=== PATIENT | male | born 1960 | race Two or more races ===

== ENCOUNTER 2024-12-09 19:51 | Emergency (ER) | payer BC, SELFPAY ==
[2024-12-09 19:54] VITALS: BP 170/100; PULSE 99; TEMP 36.9; O2SAT 96; BMI 32.5
--- NOTE | 2024-12-09 20:09 | ED.EXTPRO1 ---
HPI - Extremity Problem General Chief complaint: Extremity Problem, Nontraumatic Stated complaint: LEFT KNEE SWOLLEN Time Seen by Provider: 12/09/24 20:00 Source: patient Mode of arrival: Wheelchair Limitations: no limitations History of Present Illness HPI Narrative: patient presents complaining of left knee pain for past week. States he works on his knees. sometimes he wears pads. Has been applying ice to his knee and it was helping initially but not now. States today chills and body aches. Thought he had a fever but is afebrile here. not able to recall injury to the knee Related Data Home Medications ?Medication ?Instructions ?Recorded ?Confirmed latanoprost 0.005 % eye drops drp ophthalmic (eye) 12/09/24 timolol maleate 0.5 % eye drops drp ophthalmic (eye) 12/09/24 Allergies Allergy/AdvReac Type Severity Reaction Status Date / Time No Known Drug Allergies Allergy Verified 12/09/24 20:03 Review of Systems ROS Status of ROS 10 or more systems reviewed and unremarkable except as noted in history and below PFSH PFSH Social History Little interest or pleasure in doing things: not at all Feeling down, depressed, or hopeless: not at all Exam Constitutional Vital Signs, click to edit/add: Last Vital Signs Temp 98.4 F 12/09/24 19:54 Pulse 72 12/09/24 22:08 Resp 16 12/09/24 22:08 BP 140/83 12/09/24 22:08 Pulse Ox 98 12/09/24 22:08 O2 Del Method Room Air 12/09/24 19:54 Common normals: no apparent distress, average body habitus, oriented x3, no limitations, healthy appearing, alert and well nourished [facility] Common normals: normocephalic and head/scalp atraumatic Eye Common normals: PERRL, EOMs intact bilaterally and conjunctivae normal Respiratory Common normals: normal respiratory effort, no retractions, no use of accessory muscles and clear to auscultation bilaterally Cardio Common normals: regular rate, regular rhythm, S1 normal heart sound and S2 normal heart sound GI Common normals: Normal to inspection, nondistended, normoactive bowel sounds present, soft to palpation and non-tender Extremity Other: mod effusion left knee. Knee is warm and focal lat. tenderness of the knee joint Neuro Common normals: oriented x3, CN's II-XII intact bilaterally, moves all extremities and no focal motor deficits Psych Appearance: grossly normal Course Vital Signs Vital signs: Vital Signs Temperature 98.4 F 12/09/24 19:54 Pulse Rate 99 H 12/09/24 19:54 Respiratory Rate 18 12/09/24 19:54 Blood Pressure 170/100 H 12/09/24 19:54 Pulse Oximetry 96 12/09/24 19:54 Oxygen Delivery Method Room Air 12/09/24 19:54 Temperature 98.4 F 12/09/24 19:54 Pulse Rate 72 12/09/24 22:08 Respiratory Rate 16 12/09/24 22:08 Blood Pressure 140/83 12/09/24 22:08 Pulse Oximetry 98 12/09/24 22:08 Oxygen Delivery Method Room Air 12/09/24 19:54 MDM - Extremity (Nontraumatic) MDM Narrative Medical decision making narrative: patient presents with worsening pain left knee for the past week. No injury he can recall . He works on his knees. Has mod. effusion and knee is warm. WBC is normal. Knee aspirate with [id number] RBC and 7655 WBC. Cx pending. Discussed with donor recruiter orthopedic surgeon Dr Sepulveda who feels this is likely a bursitis. Recommends antibiotics and out patient follow up in the office. Patient and informed of the above. Given dose of Unasyn in the ED and Discharged home with a prescription for Augmentin. Lab Data Labs: Lab Results 12/09/24 Range/Units 20:25 WBC 9.8 (4.0-11.0) 10^3/uL RBC 5.15 (4.70-6.10) 10^6/uL Hgb 15.0 (14.0-18.0) g/dL Hct 44.0 (42.0-54.0) % MCV 85.4 (80.0-94.0) fL MCH 29.1 (25.9-34.0) pg MCHC 34.1 (29.9-35.2) g/dL RDW 13.2 (11.0-15.0) % Plt Count 190 (150-450) 10^3/uL MPV 10.8 (9.5-13.5) fL Neut % (Auto) 74.6 (43.0-75.0) % Lymph % (Auto) 16.2 L (20.5-60.0) % Sharp % (Auto) 7.5 (1.7-12.0) % Eos % (Auto) 1.1 (0.9-7.0) % Baso % (Auto) 0.3 (0.2-2.0) % Neut # (Auto) 7.3 H (1.4-6.5) 10^3/uL Lymph # (Auto) 1.6 (1.2-3.8) 10^3/uL Sharp # (Auto) 0.7 (0.3-0.8) 10^3/uL Eos # (Auto) 0.1 (0.0-0.7) 10^3/uL Baso # (Auto) 0.0 (0.0-0.1) 10^3/uL Abs Immat Gran (auto) 0.03 (0.00-0.03) 10^3/uL Imm/Tot Granulo (auto) 0.3 (0.0-0.5) % ESR 15 (<=20) mm/hr Sodium 140 (136-145) mmol/L Potassium 3.6 (3.5-5.1) mmol/L Chloride 103 (98-107) mmol/L Carbon Dioxide 25.6 (21.0-32.0) mmol/L Anion Gap 15.0 BUN 16.0 (7.0-18.0) mg/dL Creatinine 1.26 (0.70-1.30) mg/dL Est GFR ( Amer) >60 (>=60 mL/min/1.73m^2) Est GFR (Non-Af Amer) 58 L (>=60 mL/min/1.73m^2) BUN/Creatinine Ratio 12.7 Glucose 141 H (74-106) mg/dL Lactate 1.6 (0.4-2.0) mmol/L Uric Acid 4.8 (3.5-7.2) mg/dL Calcium 8.7 (8.5-10.1) mg/dL C-Reactive Protein 1.09 H (<=0.50) mg/dL Discharge Plan Discharge Chief Complaint: Extremity Problem, Nontraumatic Clinical Impression: Bursitis of left knee Patient Disposition: Home, Self-Care Prescriptions / Home Meds: No Action latanoprost 0.005 % drops OPHTHALMIC (EYE) timolol maleate 0.5 % drops OPHTHALMIC (EYE) Print Language: Finnish Instructions: Knee Bursitis (ED) Additional Instructions: follow up with Dr Sepulveda later today Referrals: [facility] [Outside] - 1 week HA VAZQUEZ DO [Primary Care Provider, [facility]] - 1 week Discharge Date/Time: 12/10/24 05:01 Procedures ED Procedure Instructions Procedures Procedures: left knee aspiration. medial approach until sterile conditions. 1% lidocaine as local. Approx 15cc blood tinged fluid removed. Tolerated well. No complications
--- OUTSIDE RECORDS SUMMARY | 2024-12-09 20:28 | XMS_ITS | Clinical Summary ---
Author Organization [employer] Address [id number] [address] [place] [address] Care Team Providers Care Cycle Analyst Name Role Phone Walter Khan Asher Ophelia Primary Care Provider Allergies No known active allergies Medications timolol (BETIMOL) 0.25 % ophthalmic solution 1-2 drops 2 (two) times a day. Active aspirin 81 mg chewable tablet Chew 81 mg and swallow daily. Active Active Problems Problem Noted Date Diagnosed Date Left arm pain 11/21/2016 Family History Medical History Relation Name Comments Liver disease Father Diabetes Mother Hypertension Mother Stroke Mother Relation Name Status Comments Father Mother Alive Social History Tobacco Use Types Packs/Day Years Used Date Smoking Tobacco: Never Smokeless Tobacco: Never Alcohol Use Standard Drinks/Week Comments No 0 (1 standard drink = 0.6 oz pur e alcohol) Childcare Answer Date Recorded Childcare Unknown 10/25/2018 Employment Answer Date Recorded Employment Unknown 10/25/2018 Purpose - Life Answer Date Recorded Purpose and direction in life Unknown Sex and Gender Information Value Date Recorded Sex Assigned at Not on file Legal Sex Male 12:08 PM EDT Gender Identity Not on file Sexual Orientation Not on file Last Filed Vital Signs Vital Sign Reading Time Taken Comments Blood Pressure 97/58 11/22/2016 11:48 AM EDT Pulse 64 11/22/2016 11:48 AM EDT Temperature 36.4 C (97.5 F) 11/22/2016 11:48 AM EDT Respiratory Rate 16 11/22/2016 11:48 AM EDT Oxygen Saturation 100% 11/22/2016 11:48 AM EDT Inhaled Oxygen Concentration - - Weight 77.1 kg (170 lb) 11/21/2016 11:54 AM EDT Height 182.9 cm (6') 11/21/2016 11:54 AM EDT Body Mass Index 23.06 11/21/2016 11:54 AM EDT Plan of Treatment Not on file Goals Goal Patient Goal Type Associated Problems Recent Progress Patient-Stated? Author home self care General Yes Shannan Michele, RN Note: Evaluation of progress towards goal: pt. States he will dc home no needs. Medical Devices Not on file Insurance ANTH Advance Directives * Full Code (Latest Code Status on File) Date Activated Date Inactivated Comments 11/21/2016 1:33 PM 11/22/2016 7:54 PM Care Teams Cycle Analyst Relationship Specialty Start Date End Date Asher Watson Jr., [address] [place] [id number] PCP - General Internal Medicine 11/21/16
--- OUTSIDE RECORDS SUMMARY | 2024-12-09 20:28 | XMS_ITS | Patient Health Record ---
Author Organization [facility] Address [address] [place] [address] Care Team Providers Care [place]fgrass Technician Name Role Phone Asher Watson Primary Care Provider Kinza Mancini [phone] Results Component Value Reference Range Notes BLOOD GLUCOSE (IH) Reviewed date:01/26/2024 09:50:11 AM Interpretation:Normal Performing Lab: Notes/Report: Normal Blood Glucose 83 70 - 100 mg/dl Lipid Panel (IH) Reviewed date:01/26/2024 09:49:41 AM Interpretation:Normal Performing Lab: Notes/Report: Normal TChol 119 0 - 199 mg/dl HDL 34 0 - 59 mg/dl TC/HDL 2.0 0 - 5.1 LDL 68 0 - 99 mg/dl TRG 83 0 - 149 mg/dl Reason For Referral No Information Immunizations Vaccine Route Administration Date Status Comme [facility] [id number] Flublok, 18yo & older, PFS (0.5mL Admin) IM Intramuscular 01/26/2024 Administered Vital Signs Respiratory Rate 14 /min 01/26/2024 Blood pressure diastolic 82 mm Hg 01/26/2024 Height 69 in 01/26/2024 Blood pressure systolic 106 mm Hg 01/26/2024 Weight 238 lbs 01/26/2024 BMI 35.14 kg/m2 01/26/2024 Encounters Encounter Location Date Provider Diagnosis [id number] [place] [address] 01/26/2024 Kinza Nugent Screening for hypertension Z13.6 ; Influenza vaccine administered Z23 ; Screening for lipid disorders Z13.220 ; Screening for diabetes mellitus Z13.1 and Encounter for immunization Z23 Assessments Encounter Date Diagnosis (ICD Code) Assessment Notes Treatment Notes Treatment Clinical Notes Section Notes 01/26/2024 Influenza vaccine administered (ICD-10 - Z23) 01/26/2024 Screening for hypertension (ICD-10 - Z13.6) 01/26/2024 Screening for lipid disorders (ICD-10 - Z13.220) 01/26/2024 Screening for diabetes mellitus (ICD-10 - Z13.1) 01/26/2024 Encounter for immunization (ICD-10 - Z23) VIS given and discussed, no concerns voiced; Flu vaccine administered. Pt instructed to stay in the clinic area for 20 minutes after the injection. Return PRN, ER if adverse reaction occurs. 01/26/2024 Other Reviewed results of screening with patient as well as recommendation s for lifestyle changes as appropriate. Patient expressed understanding. Reminder to document amount of time spent with patient on Biometric Screening and counseling of their results in the Preventative Medicine section. Plan Of Treatment No Information Insurance Providers Payer Name Payer Address Payer Phone Subscriber Number Group Number Insured Name Patient Relationship to Insured Coverage Start Date Coverage End Date [employer] [facility] [address] [place] [address] [phone] [id number] Julius Haddad Self - patient is the insured
[2024-12-09 20:36] LABS: Hematocrit 44.0 % (42.0-54.0); Hemoglobin 15.0 g/dL (14.0-18.0); Immature Granulocytes Abs Auto 0.03 10^3/uL (0.00-0.03); Immature Granulocytes Pct Auto 0.3 % (0.0-0.5); Lymphocytes Absolute Auto 1.6 10^3/uL (1.2-3.8); Mean Corpuscular HGB Conc 34.1 g/dL (29.9-35.2); Mean Corpuscular Hemoglobin 29.1 pg (25.9-34.0); Mean Corpuscular Volume 85.4 fL (80.0-94.0); Platelet Count 190 10^3/uL (150-450); Red Blood Count 5.15 10^6/uL (4.70-6.10); White Blood Count 9.8 10^3/uL (4.0-11.0)
[2024-12-09 20:55] LABS: Lactate/Lactic Acid 1.6 mmol/L (0.4-2.0)
[2024-12-09 21:02] LABS: Anion Gap 15.0; Blood Urea Nitrogen 16.0 mg/dL (7.0-18.0); Calcium 8.7 mg/dL (8.5-10.1); Carbon Dioxide 25.6 mmol/L (21.0-32.0); Chloride 103 mmol/L (98-107); Estimated GFR (African America >60 (>=60 mL/min/1.73m^2); Estimated GFR (Non-African Ame 58 (>=60 mL/min/1.73m^2); Glucose 141 mg/dL (74-106); Potassium 3.6 mmol/L (3.5-5.1); Sodium 140 mmol/L (136-145)
[2024-12-09 21:07] LABS: Uric Acid 4.8 mg/dL (3.5-7.2)
[2024-12-09] MEDS: FENTANYL CITRATE/PF 100 MCG/2 ML VIAL 50 MCG IV (21:11)
[2024-12-09] MEDS: LIDOCAINE HCL 1% 100 MG/10 ML MDV INJ (21:16)
[2024-12-09 22:08] VITALS: BP 140/83; PULSE 72; O2SAT 98
[2024-12-10] MEDS: AMPICILLIN SODIUM/SULBACTAM NA 3 GM in 0.9 % SODIUM CHLORIDE 100 ML IV (04:18)
[2024-12-10 09:14] LABS: BOX Test Date Sent 7/27/25; BOX Test Reference Lab FRMC
[2024-12-10 09:15] LABS: BOX Test Sent Out KNEE ASPIRATE
== END 2024-12-10 05:01 | disposition home or self-care (01) ==
PROVIDERS: Emergency Provider Internal Medicine; PCP Internal Medicine
DX: M70.52 Other bursitis of knee, left knee (principal)
CPT/HCPCS: 20610; 36415; 73562; 80048; 82945; 83605; 84550; 85025; 85652; 86140; 87070; 87075; 87205; 89051; 89060; 96365; 96375; 99284; J0295; J3010